=== PATIENT | female | born 1980 | race Caucasian/White ===

== ENCOUNTER 2016-08-14 21:34 | Outpatient (CLI) | payer MEDICAID ==
[~2016-08-14] VITALS: Ht 157.5 cm; Wt 65.6 kg
[~2016-08-14 21:34] MED LIST: ONDA-43 PO
[2016-08-14 21:53] VITALS: Ht 157.5 cm; Wt 65.6 kg
[2016-08-14 21:54] VITALS: BP 105/55; RESP 18
[2016-08-14] MEDS ORDERED: PREN1TAB62 PO (22:01)
[2016-08-14 23:00] LABS: ADD UMIC YES; URINE BILIRUBIN (Dip) NEGATIVE (NEGATIVE); URINE BLOOD (Dip) 2+ (NEGATIVE); URINE GLUCOSE (Dip) NEGATIVE (NEGATIVE); URINE KETONES (Dip) NEGATIVE (NEGATIVE); URINE LEUKOCYTE ESTERASE (Dip) NEGATIVE (NEGATIVE); URINE NITRITE (Dip) NEGATIVE (NEGATIVE); URINE TOTAL PROTEIN (Dip) NEGATIVE (NEGATIVE); URINE UROBILINOGEN (Dip) 0.2 E.U./dL (0.1-1.0)
[2016-08-14 23:07] LABS: BASOPHILS % 0.3 % (0.0-2.0); EOSINOPHILS # 0.2 10^3/ul (0.0-0.5); EOSINOPHILS % 1.5 % (0.0-7.0); HEMATOCRIT 30.1 % (37.0-47.0); LYMPHOCYTES % 13.1 % (15.0-51.0); MEAN CORPUSCULAR HGB CONC 33.3 g/dl (32.0-37.0); MEAN CORPUSCULAR VOLUME 90.2 fl (82.0-101.0); MEAN PLATELET VOLUME 7.8 fl (7.4-10.4); MONOCYTES % 6.8 % (0.0-11.0); NEUTROPHIL # 11.9 10^3/ul (1.6-7.5); NEUTROPHILS % 78.3 % (39.0-77.0); PLATELET COUNT 297 10^3/UL (140-440); RED BLOOD COUNT 3.34 10^6/ul (4.20-5.40); RED CELL DISTRIBUTION WIDTH 14.9 % (11.5-14.5); UNCORRECTED WBC 15.2 10^3/ul (4.8-10.8); WHITE BLOOD COUNT 15.2 10^3/ul (4.8-10.8)
[2016-08-14 23:10] LABS: CONDITION 1; LH ANALYZER COMMENTS 1
[2016-08-14 23:16] LABS: URINE COLOR YELLOW (YELLOW)
[2016-08-14 23:18] LABS: BACTERIA,URINE FEW; SQUAMOUS EPITHELIAL CELL,UR MODERATE; URINE RBCS 0-2 /HPF (0)
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
[2016-08-15] MEDS ORDERED: ACETAMINOPHEN 325 MG TAB PO ONE
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
== END 2016-08-15 01:00 | disposition home or self-care (01) ==
LOC: OBT 21:34 → L-D 21:35 → OBT 08-15 01:00
PROVIDERS: ATTEND Obstetrics & Gynecology
DX: O26.892 Other specified pregnancy related conditions, second trimester (principal); R10.9 Unspecified abdominal pain; M54.9 Dorsalgia, unspecified; O09.522 Supervision of elderly multigravida, second trimester; Z3A.22 22 weeks gestation of pregnancy; V49.40XA Driver injured in collision with unspecified motor vehicles in traffic accident, initial encounter; Y92.410 Unspecified street and highway as the place of occurrence of the external cause
CPT/HCPCS: 36415; 76815; 81001; 85025; 86850; 86900; 86901; 87086; Z7500; Z7610; 81003; G0463

== ENCOUNTER 2016-10-25 18:54 | Outpatient (CLI) | payer MEDICAID ==
[~2016-10-25] VITALS: Ht 162.6 cm; Wt 70.0 kg
[~2016-10-25 18:54] MED LIST changes: -ONDA-43 PO; +PREN1TAB62 PO
[2016-10-25 19:11] VITALS: BP 111/55; PULSE 80; RESP 18
[2016-10-25 20:24] LABS: ADD UMIC YES; URINE BILIRUBIN (Dip) NEGATIVE (NEGATIVE); URINE BLOOD (Dip) TRACE (NEGATIVE); URINE COLOR LT. YELLOW (YELLOW); URINE GLUCOSE (Dip) NEGATIVE (NEGATIVE); URINE KETONES (Dip) NEGATIVE (NEGATIVE); URINE LEUKOCYTE ESTERASE (Dip) TRACE (NEGATIVE); URINE NITRITE (Dip) NEGATIVE (NEGATIVE); URINE TOTAL PROTEIN (Dip) NEGATIVE (NEGATIVE); URINE UROBILINOGEN (Dip) 0.2 E.U./dL (0.1-1.0)
--- NOTE | 2016-10-25 20:36 | RADRPT ---
PROCEDURE: OB ultrasound for biophysical profile CLINICAL INDICATION: Biophysical profile. . leaking TECHNIQUE: Multiple sonographic images of the pelvis were obtained. Transabdominal view of the gr avid uterus are available for review. The images were reviewed on a PACS workstation. COMPARISON: 10/25/2016 FINDINGS: Single intrauterine gestation. Presentation: Cephalic. Partially visualized placenta: Posterior breathing movement = 2/2 tone = 2/2 motion = 2/2 HAILEY = 2/2 HAILEY = 9.7 cm heart rate: 133 beats per minute IMPRESSION: Single intrauterine gestation. Biophysical profile 02/20 HAILEY = 9.7 cm RPTAT: AADD .Tomi Hawley MD, MD Date Time Electronically viewed and signed by .Tomi Hawley MD, on 10/25/2016 20:36 .B/
[2016-10-25 21:00] LABS: SQUAMOUS EPITHELIAL CELL,UR FEW; URINE RBCS 0-2 /HPF (0)
--- NOTE | 2016-10-25 21:29 | RADRPT ---
PROCEDURE: Ultrasound CLINICAL INDICATION: Leaking amnionic fluid and uterine contractions. TECHNIQUE: Ultrasound examination of for evaluation of the cervix. Real time abrams scale images were obtained and M-mode technique was employed. COMPARISON: Ultrasound examination a dated 10/05/2016. FINDINGS: The cervix measures 3 cm. Single live in the uterine is identified with estimated gestational age of 32 weeks and 1 day by last menstrual period, with estimated date of delivery of 12/19/2016. Heart motion is detected at a rate of 134 beats per minute. The placenta is posterior grade 1 versu s grade 2. IMPRESSION: Cervix measures 3 cm. RPTAT: UU Physician Jose Date Time Electronically viewed and signed by Physician Jose on 10/25/2016 21:29 RS/
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
--- NOTE | 2016-10-25 23:43 | QN ---
Documentation Comment 36-year-old with IUP at 31 weeks and 6 days presented with complaint of leaking of brownish fluid for the last 3 days, as well as feeling some cramps. [facility]. She had not had any gynecology or OB evaluation for this. She denies any decreased movement. She denies any complications during this . She denies any dysuria. Physical examination: General appearance: Alert and oriented 4. Patient does not appear to be in any acute distress. Abdomen: Soft, gravid, nontender, fundal height consistent with gestational age NST: Occasional contractions 3-4 and 1 hour noted on the monitor. heart tracing: Category 1 Sterile speculum examination: Negative pooling, negative nitrazine, negative R OM Cervix appeared to be closed and long. No blood or brownish vaginal discharge in the vault. Transvaginal cervical length more than 3 cm PROCEDURE: Ultrasound CLINICAL INDICATION: Leaking amnionic fluid and uterine contractions. TECHNIQUE: Ultrasound examination of for evaluation of the cervix. Real time abrams scale images were obtained and M-mode technique was employed. COMPARISON: Ultrasound examination a dated 10/05/2016. FINDINGS: The cervix measures 3 cm. Single live in the uterine is identified with estimated gestational age of 32 weeks and 1 day by last menstrual period, with estimated date of delivery of 12/19/2016. Heart motion is detected at a rate of 134 beats per minute. The placenta is posterior grade 1 versus grade 2. IMPRESSION: Cervix measures 3 cm. RPTAT: UU PROCEDURE: OB ultrasound for biophysical profile CLINICAL INDICATION: Biophysical profile. . leaking TECHNIQUE: Multiple sonographic images of the pelvis were obtained. Transabdominal view of the gravid uterus are available for review. The images were reviewed on a PACS workstation. COMPARISON: 10/25/2016 FINDINGS: Single intrauterine gestation. Presentation: Cephalic. Partially visualized placenta: Posterior breathing movement = 2/2 tone = 2/2 motion = 2/2 HAILEY = 2/2 HAILEY = 9.7 cm heart rate: 133 beats per minute IMPRESSION: Single intrauterine gestation. Biophysical profile 8/8 HAILEY = 9.7 cm RPTAT: AADD Assessment: IUP at 31 weeks and 6 days No evidence of PPROM or labor, After p.o. hydration. Patient felt no cramps or any symptoms. Patient will be discharged home. Strict labor precaution and kick count discussed with the patient. Advised to have a follow-up with her OB clinic in a couple days after discharge from the triage and to return to triage if she has any other symptoms Patient verbalized understanding JUAN MANUEL GILLIAM MD Oct 25, 2016 23:43
== END 2016-10-25 22:50 | disposition home or self-care (01) ==
LOC: OBT 18:54 → L-D 18:55 → OBT 22:50
PROVIDERS: ATTEND Obstetrics & Gynecology
DX: O42.913 Preterm premature rupture of membranes, unspecified as to length of time between rupture and onset of labor, third trimester (principal); O09.523 Supervision of elderly multigravida, third trimester; O26.893 Other specified pregnancy related conditions, third trimester; R25.2 Cramp and spasm; Z3A.31 31 weeks gestation of pregnancy
CPT/HCPCS: 76817; 76818; 81001; 84112; Z7500; 81003; G0463

== ENCOUNTER 2016-11-19 04:55 | Outpatient (CLI) | payer MEDICAID ==
[~2016-11-19] VITALS: Ht 157.5 cm; Wt 71.3 kg
[2016-11-19 05:14] VITALS: Ht 157.5 cm; Wt 71.3 kg
[2016-11-19 05:15] VITALS: BP 107/54; PULSE 68; RESP 18
[2016-11-19] MEDS ORDERED: TERBUTALINE 1 MG/ML INJ SC ONE (06:30)
[2016-11-19 08:34] LABS: ADD UMIC NO; UR BILIRUBIN (Dip) NEGATIVE (NEGATIVE); UR BLOOD (Dip) NEGATIVE (NEGATIVE); UR CLARITY CLEAR (CLEAR); UR COLOR LT. YELLOW (YELLOW); UR GLUCOSE (Dip) NEGATIVE (NEGATIVE); UR KETONES (Dip) NEGATIVE (NEGATIVE); UR LEUKOCYTE ESTERASE (Dip) NEGATIVE (NEGATIVE); UR NITRITE (Dip) NEGATIVE (NEGATIVE); UR TOTAL PROTEIN (Dip) NEGATIVE (NEGATIVE); UR UROBILINOGEN (Dip) 0.2 E.U./dL (0.1-1.0)
--- NOTE | 2016-11-19 09:19 | RADRPT ---
PROCEDURE: US biophysical profile. CLINICAL INDICATION: labor TECHNIQUE: Multiple sonographic images of the uterus were obtained. The images were revi ewed on a PACS workstation. COMPARISON: No prior studies are available for comparison. FINDINGS: There is a single live intrauterine gestation. heart rate is 150 beats per minute. The position is cephalic. The placenta is posterior grade II. The HAILEY is 11.2 cm. (Normal = 5-20 cm.) Breathing Movement: 2 Gross Body Movement: 2 Tone: 2 Qualitative Amniotic Fluid Volume: 2 TOTAL: 8 IMPRESSION: 1. The biophysical score is 8/8. 2. The HAILEY = 11.2 cm RPTAT: UU .Zeb Valentino MD, MD Date Time Electronically viewed and signed by .Zeb Valentino MD, on 11/19/2016 09:19 .K/
--- NOTE | 2016-11-19 11:10 | TRIAGE ---
OB Triage Datetime Report Generated by CPN: 11/19/2016 11:09 Datetime: 11/19/2016 10:38 Labor Evaluation Frequency: 0 Monitor Mode: External Pattern: Normal: <= 5 Contractions in 10 Minutes Resting Tone [place]: Relaxed Heart Rate FHR Baseline Rate: 130 Monitor Mode: External US FHR Baseline Changes: No Baseline Change Variability: Moderate 6-25 bpm Accelerations: 15X15 Decelerations: None Pain Assessment Pain Scale: 0 Pain Presence: None/Denies Pain Type: N/A Datetime: 11/19/2016 10:00 Labor Evaluation Frequency: x1 Monitor Mode: External Duration (sec)2399: 50 Pattern: Normal: <= 5 Contractions in 10 Minutes Resting Tone [place]: Relaxed Heart Rate FHR Baseline Rate: 130 FHR Baseline Changes: No Baseline Change Variability: Moderate 6-25 bpm Accelerations: 15X15 Decelerations: None Pain Assessment Pain Scale: 0 Pain Presence: None/Denies Pain Type: N/A Datetime: 11/19/2016 09:00 Labor Evaluation Frequency: x1 Monitor Mode: External Duration (sec)2399: 100 Pattern: Normal: <= 5 Contractions in 10 Minutes Resting Tone [place]: Relaxed Heart Rate FHR Baseline Rate: 130 Monitor Mode: External US FHR Baseline Changes: No Baseline Change Variability: Moderate 6-25 bpm Accelerations: 15X15 Decelerations: None Category: Category I Datetime: 11/19/2016 08:01 Labor Evaluation Frequency: x1 Monitor Mode: External Duration (sec)2399: 120 Quality: Mild Pattern: Normal: <= 5 Contractions in 10 Minutes Resting Tone [place]: Relaxed Heart Rate FHR Baseline Rate: 130 Monitor Mode: External US FHR Baseline Changes: No Baseline Change Variability: Moderate 6-25 bpm Accelerations: 15X15 Decelerations: None Category: Category I Datetime: 11/19/2016 07:32 Pain Assessment Pain Scale: 0 Pain Presence: None/Denies Pain Type: N/A Pain Assessment Comments: PT REPORTS THAT SHE NO LONGER FEELS PAIN OR CONTRACTIONS Datetime: 11/19/2016 06:46 Stage of : OB Triage Maternal Assessment Level of Consciousness: Fully Conscious DTR's/Clonus: DTRs 2+; No Clonus Headache: Denies Breath Sounds, Left: Clear and Equal Breath Sounds, Right: Clear and Equal Nausea/Vomiting: Denies RUQ Epigastric Pain: Denies Labor Evaluation Frequency: X1 Monitor Mode: External Duration (sec)2399: 60-110 Quality: Moderate Pattern: Normal: <= 5 Contractions in 10 Minutes Resting Tone [place]: Relaxed Heart Rate FHR Baseline Rate: 135 Monitor Mode: External US Variability: Moderate 6-25 bpm Accelerations: 15X15 Decelerations: None Category: Category I Pain Assessment Pain Scale: 9 Pain Presence: Intermittent Pain Type: Contraction Pain Location: Abdomen Pain Goal: 3 Pain Relief Measures: Comfort Measures Datetime: 11/19/2016 06:16 Stage of : OB Triage Datetime: 11/19/2016 06:15 Stage of : OB Triage Maternal Assessment Level of Consciousness: Fully Conscious DTR's/Clonus: DTRs 2+; No Clonus Headache: Denies Breath Sounds, Left: Clear and Equal Breath Sounds, Right: Clear and Equal Nausea/Vomiting: Denies RUQ Epigastric Pain: Denies Labor Evaluation Frequency: X4 Monitor Mode: External Duration (sec)2399: 60-110 Quality: Moderate Pattern: Normal: <= 5 Contractions in 10 Minutes Resting Tone [place]: Relaxed Heart Rate FHR Baseline Rate: 130 Monitor Mode: External US Variability: Moderate 6-25 bpm Accelerations: 15X15 Decelerations: None Category: Category I Pain Assessment Pain Scale: 9 Pain Presence: Intermittent Pain Type: Contraction Pain Location: Abdomen Pain Goal: 3 Pain Relief Measures: Comfort Measures Vaginal Exam Dilatation (cms): 1.0 Effacement (%): 50 Station: -3 Exam By: SHIV COOLEY Datetime: 11/19/2016 05:55 Stage of : OB Triage Datetime: 11/19/2016 05:25 Time of Arrival: 11/19/2016 04:50 EGA: 35.3 Arrived By: Wheelchair Arrived From: Home Chief Complaint: PT C/O ABDOMEN PAIN Movement: Present Contractions: Irregular Rupture of Membranes: Denies Vaginal Bleeding: None Vaginal Discharge: Denies Recent Sexual Intercouse: Denies Abdominal Trauma: Not Applicable Patient Complaints: Contractions Additional Patient Complaints: INITIAL ASSESSMENT, SVE, TOCO AND EFM APPLIED Time Provider Notified: 11/19/2016 05:55 Provider Notified: DR. CARROLL Initial Plan: ORAL HYDRATION, UA Datetime: 11/19/2016 05:20 Stage of : OB Triage Maternal Assessment Level of Consciousness: Fully Conscious DTR's/Clonus: DTRs 2+; No Clonus Headache: Denies Blurred Vision: No Respiratory Effort: Unlabored; Regular Rhythm; Equal Expansion Breath Sounds, Left: Clear and Equal Breath Sounds, Right: Clear and Equal Nausea/Vomiting: Denies RUQ Epigastric Pain: Denies Lower Extremities Edema: None Upper Extremities Edema: None Facial Edema: None Temperature Route: Oral Fall Risk Assessment History of Falling: (0) No Secondary Diagnosis: (0) No Ambulatory Aid: (0) Bedrest/Nurse Assist IV Therapy: (0) No Gait: (0) Normal/Bedrest/Immobile Mental Status: (0) Oriented to Own Ability Fall Score: 0 Fall Risk Score Definition: No Risk: No action required Labor Evaluation Frequency: IRREGULAR Monitor Mode: External Duration (sec)2399: 80 Quality: Moderate Pattern: Normal: <= 5 Contractions in 10 Minutes Resting Tone [place]: Relaxed Heart Rate FHR Baseline Rate: 130 Monitor Mode: External US Variability: Moderate 6-25 bpm Accelerations: 15X15 Decelerations: None Category: Category I Pain Assessment Pain Scale: 9 Pain Presence: Intermittent Pain Type: Contraction Pain Location: Abdomen Pain Goal: 3 Pain Relief Measures: Comfort Measures Vaginal Exam Dilatation (cms): 1.0 Effacement (%): 50 Station: -3 Exam By: SHIV COOLEY Datetime: 11/19/2016 05:16 Stage of : OB Triage Datetime: 10/25/2016 19:09 Fall Score: 0 Fall Risk Score Definition: No Risk: No action required Datetime: 10/25/2016 19:06 EGA: 31.6 Time Provider Notified: 10/25/2016 19:30 Provider Notified: ARDALAN Datetime: 08/14/2016 21:39 EGA: 21.4 Datetime: 08/14/2016 21:20 Fall Score: 0 Fall Risk Score Definition: No Risk: No action required
--- NOTE | 2017-02-05 10:40 | QN ---
Documentation Comment iup 35weeks g2-1 c/o of ucx vss exam wnl os closed a/p iup 35 weeks false labor dc home JOSE D SAUCEDA MD Feb 05, 2017 10:40
== END 2016-11-19 11:10 | disposition home or self-care (01) ==
LOC: OBT 04:55 → L-D 04:56 → OBT 11:10
PROVIDERS: ATTEND Obstetrics & Gynecology
DX: O26.893 Other specified pregnancy related conditions, third trimester (principal); R10.9 Unspecified abdominal pain; O09.523 Supervision of elderly multigravida, third trimester; Z3A.35 35 weeks gestation of pregnancy
CPT/HCPCS: 76818; 81003; 87086; 96372; J3105; Z7500; G0463

== ENCOUNTER 2016-12-13 19:05 | Inpatient (IN) | payer MEDICAID ==
--- NOTE | 2016-11-21 21:51 | NSTRPT ---
NST Information Datetime Report Generated by CPN: 11/21/2016 21:51 Datetime: 11/21/2016 09:05 NST Information EGA: 35.5 Test Number: 1 Time on Monitor: 11/21/2016 09:33 Time off Monitor: 11/21/2016 10:01 NST Duration (Min): 28 Reason for NST: Other Reason for NST Other: Marginal Cord Insertion Test and Monitor Explained: Monitor Explained; Test Explained; Verbalized Understanding Pulse: 82 Resp: 17 SBP: 101 DBP: 52 Test Evaluation NST Interventions: Reposition Patient Patient States Movement: Present Contraction Frequency: none FHR Baseline : 120 Variability: Moderate 6-25bpm Accelerations: 15X15 Decelerations: None FHR Category: Category I NST Results: Reactive Comments: To u/s, HAILEY 10.3cm, cephalic 1002-Pt home undelivered with PTL precautions, kick count instructions reviewed and follow up NST appt given. States understanding and denies further questions at this time. Electronically Signed By E-Signature: with User ID: [id number]
[~2016-12-13] VITALS: Ht 157.5 cm; Wt 61.3 kg
[2016-12-13 19:28] VITALS: Ht 157.5 cm; Wt 61.3 kg
[2016-12-13 19:29] VITALS: BP 114/69; PULSE 86; RESP 18
[2016-12-13] MEDS ORDERED: LACTATED RINGER'S 1,000 ML IV SCH (21:08)
--- NOTE | 2016-12-13 21:25 | TRIAGE ---
OB Triage Datetime Report Generated by CPN: 12/13/2016 21:25 Datetime: 12/13/2016 20:58 Vaginal Exam Dilatation (cms): 7.0 Effacement (%): 90 Station: -1 Exam By: Judy Gomes RN Datetime: 12/13/2016 20:54 ROM Test Kit: Positive Datetime: 12/13/2016 20:13 Vaginal Exam Dilatation (cms): 4.0 Effacement (%): 80 Station: -2 Exam By: Judy Gomes RN Membrane Status: Ruptured Membranes Ruptured Date/Time: 12/13/2016 15:00 Membranes Rupture Method: Spontaneous Amniotic Fluid Color: Clear Amniotic Fluid Amount: Small Vaginal Bleeding: None Pool: Positive Cervix, Consistency: Soft Cervix, Position: Midposition Presentation 'A': Cephalic Datetime: 12/13/2016 19:22 Time of Arrival: 12/13/2016 18:55 EGA: 38.6 Arrived By: Ambulatory Arrived From: Home Chief Complaint: UC's Movement: Decreased Contractions: Regular Time Contractions Began: 12/13/2016 16:00 Contractions: Every 5 min Rupture of Membranes: Unsure Vaginal Bleeding: None Vaginal Discharge: Denies Recent Sexual Intercouse: Denies Abdominal Trauma: Not Applicable Patient Complaints: Contractions; Other Additional Patient Complaints: Leaking Time Provider Notified: 12/13/2016 19:35 Provider Notified: Dr. Arrieta Initial Plan: CEFM Datetime: 12/13/2016 19:15 Stage of : OB Triage Assessment Type: Triage Maternal Assessment Level of Consciousness: Fully Conscious DTR's/Clonus: DTRs 2+; No Clonus Headache: Denies Blurred Vision: No Respiratory Effort: Unlabored; Regular Rhythm; Equal Expansion Breath Sounds, Left: Clear and Equal Breath Sounds, Right: Clear and Equal Nausea/Vomiting: Denies RUQ Epigastric Pain: Denies Facial Edema: None Temperature Route: Oral Fall Risk Assessment History of Falling: (0) No Secondary Diagnosis: (0) No Ambulatory Aid: (0) Bedrest/Nurse Assist IV Therapy: (0) No Gait: (0) Normal/Bedrest/Immobile Mental Status: (0) Oriented to Own Ability Fall Score: 0 Fall Risk Score Definition: No Risk: No action required Pain Assessment Pain Scale: 8 Pain Presence: Intermittent Pain Type: Cramping Pain Location: Abdomen Datetime: 11/19/2016 05:25 EGA: 35.3 Datetime: 11/19/2016 05:20 Fall Score: 0 Fall Risk Score Definition: No Risk: No action required Datetime: 10/25/2016 19:09 Fall Score: 0 Fall Risk Score Definition: No Risk: No action required Datetime: 10/25/2016 19:06 EGA: 31.6 Datetime: 08/14/2016 21:39 EGA: 21.4 Datetime: 08/14/2016 21:20 Fall Score: 0 Fall Risk Score Definition: No Risk: No action required
[2016-12-13] MEDS ORDERED: LIDOCAINE 1% (MPF) 30 ML INJ INJ PRN (21:30)
[2016-12-13] MEDS ORDERED: BUTORPHANOL 2 MG INJ IV PRN (21:30)
[2016-12-13] MEDS ORDERED: CARBOPROST 250 MCG INJ IM PRN ×2 (21:30→23:00)
[2016-12-13] MEDS ORDERED: IBUPROFEN 600 MG TAB PO PRN (21:30)
[2016-12-13] MEDS ORDERED: MISOPROSTOL 200 MCG TAB PR PRN ×2 (21:30→23:00)
[2016-12-13] MEDS ORDERED: AMPICILLIN 2 GM/NS (PMX) 100 ML IV ONE (21:30)
[2016-12-13] MEDS ORDERED: LACTATED RINGER'S 1,000 ML IV PRN (21:30)
[2016-12-13] MEDS ORDERED: METHYLERGONOVINE 0.2 MG INJ IM PRN ×2 (21:30→23:00)
[2016-12-13] MEDS ORDERED: OXYTOCIN 30 UNITS/LR 500 ML IV PRN ×2 (21:30→23:00)
--- NOTE | 2016-12-13 22:46 | HP ---
Date/Time of Note Date/Time of Note DATE: 12/13/16 TIME: 22:38 OB - History Hx of Present Free Text/Dictation 36 years old with IUP at 38 weeks and 6/7 days presented with complaint of SROM. She also had some cramps. She was noted to be in labor. Patient's past Ob history was significant for history of IUFD at 6 mo. she was noted to be 4 cm dilated, how ever rapidly progressed to complete and had precipitous labor.Her GBS was positive. how ever due to precipitous labor there was no chance to receive IV antibiotics. Patient had marginal cord insertion in current and had been following up with testing. she was immediately to L&D room Estimated Due Date: Dec 21, 2016 Obstetrical Complications: Other (History of IUFD at 6 mo. Has marginal placental insertion cord in current ) Medical Complications: None Past Family/Social History * Past Medical, Surgical, Family and Obstetric Histories reviewed from chart. OB Admission Exam Vital Signs Vital Signs Vital Signs Date Time Temp Pulse Resp B/P Pulse Ox O2 Delivery O2 Flow Rate FiO2 12/13/16 19:29 98.0 86 18 114/69 Room Air Physical Exam HEENT: WNL Abdomen: WNL Cervical Dilatation: 10cm Effacement: 100% Station: +3 Membranes: Ruptured Amniotic Fluid: Clear Heart Rate: 120's Accelerations: Accelerations Present Decelerations: No Decelerations Varibility: Moderate Contractions on Admission: < 5 Minutes Apart Intensity: Firm OB Assessment/Plan Reason for admission: active labor Other Assessment: IUP at 38 weeks and 6 days History of IUFD at 6 mo Marginal insertion of the cord. Precipitous labor GBS positive, no time for prophylaxis. Nursery informed Patient delivered shortly after arrival; See the delivery note JUAN MANUEL GILLIAM MD December 13, 2016 22:46
[2016-12-13] MEDS: LACTATED RINGER'S 1,000 ML IV* SCH (22:48)
--- NOTE | 2016-12-13 22:48 | LDN ---
Date/Time of Note Date/Time of Note DATE: 12/13/16 TIME: 22:46 Delivery Summary Placenta Delivered: Spontaneously Meconium: none Episiotomy: No Perineal laceration: 1 Laceration repair: first degree superical abrasion of the left labia minora noted. no requirement for repair, not bleeding Anesthesia type: None Sponge & Needle done & correct: Yes All needle counts correct: Yes Any foreign bodies felt in the: No Problems: Infant Delivery Information Sex Infant Sex: male Apgars 1 Minute: 9 5 Minute: 9 Suctioning Nose & mouth suctioned at don: Yes Umbilical Cord Cord presentations: no nuchal cord Cord Blood was obtained: Yes JUAN MANUEL GILLIAM MD December 13, 2016 22:48
[2016-12-13] MEDS ORDERED: ZOLPIDEM 5 MG TAB PO PRN (23:00)
[2016-12-13] MEDS ORDERED: ONDANSETRON 4 MG INJ IV PRN (23:00)
[2016-12-13] MEDS ORDERED: ACETAMINOPHEN 325 MG TAB PO PRN (23:00)
[2016-12-13] MEDS ORDERED: METHYLERGONOVINE 0.2 MG TAB PO PRN (23:00)
[2016-12-13] MEDS ORDERED: ACETAMINOPHEN/CODEINE #3 TAB PO PRN (23:00)
[2016-12-13] MEDS ORDERED: LANOLIN 7 GM TUBE TOP PRN (23:00)
[2016-12-13] MEDS ORDERED: WITCH HAZEL/GLYCERIN PAD PR PRN (23:00)
[2016-12-13] MEDS ORDERED: DIPHENHYDRAMINE 25 MG CAP PO PRN (23:00)
--- NOTE | 2016-12-13 23:03 | DELSUM ---
Delivery Summary A-C Datetime Report Generated by CPN: 12/13/2016 23:03 DELIVERY PERSONNEL [employer] Sourcing Specialist: Long, Alexsandra MATERNAL INFORMATION Delivery Anesthesia: None Medications in Delivery: OXYTOCIN 30 UNITS IN 500ML LR Estimated Blood Loss (ml): 220 Placenta Cultured: Yes Maternal Complications: Precip Labor <3hrs RN Comments: ADMITTED FROM TRIAGE TO LD AT 2120 AT 7CM; CHECKED AGAIN AT 2120 SVE 10/100/+2; DELIVE RY AT 2121 LABOR SUMMARY EDC: 12/21/2016 00:00 No. Babies in Womb: 1 Attempted: No Labor Anesthesia: None LABOR INFORMATION Reason for Induction: Not Applicable Oxytocin: N/A Group B Beta Strep: Positive Antibiotics # of Doses: 1 Antibiotics Time of Last Dose: 12/13/2016 21:20 Steroids Given: None Reason Steroids Not Administered: Not Applicable MEMBRANES Membranes Rupture Method: Spontaneous Rupture of Membranes: 12/13/2016 15:00 Length of Rupture (hr): 6.35 Amniotic Fluid Color: Clear Amniotic Fluid Amount: Small Amniotic Fluid Odor: None STAGES OF LABOR Stage 3 hr: 0 Stage 3 min: 4 VAGINAL DELIVERY Episiotomy: None Laceration Extension: N/A Laceration Type: None Laceration Repair: Not Applicable Initial Vag Sponge Count: 10 Final Vag Sponge Count: 10 Initial Vag Sharps Count: 1 Final Vag Sharps Count: 1 Sponge Count Correct: Yes Sharps Count Correct: Yes BABY A INFORMATION Delivery Date/Time: 12/13/2016 21:21 Method of Delivery: Vaginal Born in Route : No : N/A Forceps: N/A Vacuum Extraction: N/A Shoulder Dystocia : N/A SHOULDER DYSTOCIA BABY A Infant Delivery Date/Time: 12/13/2016 21:21 PRESENTATION/POSITION BABY A Presentation: Cephalic Cephalic Presentation: Vertex Vertex Position: Left Occipital Anterior Breech Presentation: N/A PLACENTA INFORMATION BABY A Placenta Delivery Time : 12/13/2016 21:25 Placenta Method of Delivery: Spontaneous Placenta Status: Delivered SCORES BABY A Heart Rate 1 min: >100 bpm Resp Effort 1 min: Good Cry Reflex Irritability 1 min: Cough/Sneeze/Pulls Away Muscle Tone 1 min: Active Motion Color 1 min: Body [place], Extremit Blue Resuscitation Effort 1 min: Tactile Stimulation SCORE 1 MIN: 9 Heart Rate 5 min: >100 bpm Resp Effort 5 min: Good Cry Reflex Irritability 5 min: Cough/Sneeze/Pulls Away Muscle Tone 5 min: Active Motion Color 5 min: Body [place], Extremit Blue Resuscitation Effort 5 min: Tactile Stimulation SCORE 5 MIN: 9 INFORMATION BABY A Gestational Age at Delivery: 38.6 Gestational Status: Early Term- 37- 38.6 Weeks Infant Outcome : Liveborn Infant Condition : Stable Infant Sex: Male IDENTIFICATION/MEDS BABY A ID Band Number: [id number] ID Band Location: Right Leg; Left Arm Sensor Applied: Yes Sensor Number: [id number] Sensor Location : Cord Clamp Vitamin K Given : Not Given Erythromycin Given: Not Given WEIGHT/LENGTH BABY A Infant Birthweight (gm): 3220 Infant Weight (lb): 7 Infant Weight (oz): 2 Infant Length (in): 19.00 Length (cm): 48.26 CORD INFORMATION BABY A No. Cord Vessels: 3 Nuchal Cord : N/A Cord Blood Taken: Yes Suction: Mouth; Nose ASSESSMENT BABY A Infant Complications: None Physical Findings at Delivery: Within Normal Limits Respirations: Appears Normal Financial Aid Manager/ALS Called : No Care By: CODEY SIGALA RN Transferred To: Remains with Mother
[2016-12-14] VITALS: BP 129/65; PULSE 73; RESP 19
[2016-12-14 01:39] LABS: ADD SCAN DIFF NO
[2016-12-14 01:46] LABS: ABNORMAL IP MESSAGE 1; HEMATOCRIT 27.4 % (37.0-47.0); HEMOGLOBIN 8.4 g/dl (12.0-16.0); MEAN CORPUSCULAR HEMOGLOBIN 25.5 pg (29.0-33.0); MEAN CORPUSCULAR HGB CONC 30.7 g/dl (32.0-37.0); MEAN CORPUSCULAR VOLUME 83.3 fl (82.0-101.0); MEAN PLATELET VOLUME 9.8 fl (7.4-10.4); PLATELET COUNT 334 10^3/UL (140-415); RED BLOOD COUNT 3.29 10^6/ul (4.20-5.40); RED CELL DISTRIBUTION WIDTH 15.3 % (11.5-14.5)
[2016-12-14] MEDS: LACTATED RINGER'S 1,000 ML IV* SCH ×2 (01:51→22:48)
[2016-12-14 02:10] LABS: INR 0.96; PARTIAL THROMBOPLASTIN TIME 24.5 Sec (25.0-35.0); PROTIME 12.8 Sec (12.2-14.2)
[2016-12-14 03:15] VITALS: BP 120/68; PULSE 86; RESP 18
[2016-12-14 03:59] LABS: LYMPHOCYTES # 0.7 10^3/ul (0.8-2.9); MONOCYTE # 0.7 10^3/ul (0.3-0.9); NEUTROPHIL # 21.9 10^3/ul (1.6-7.5)
[2016-12-14] MEDS: IBUPROFEN 600 MG TAB PO SCH ×5 (05:55→23:59)
[2016-12-14 06:54] LABS: ADD SCAN DIFF NO
[2016-12-14 07:00] LABS: ABNORMAL IP MESSAGE 1; BASOPHILS % 0.1 % (0.0-2.0); EOSINOPHILS # 0.1 10^3/ul (0.0-0.5); EOSINOPHILS % 0.6 % (0.0-7.0); HEMOGLOBIN 8.7 g/dl (12.0-16.0); LYMPHOCYTES # 2.2 10^3/ul (0.8-2.9); LYMPHOCYTES % 10.1 % (15.0-51.0); MEAN CORPUSCULAR HEMOGLOBIN 25.8 pg (29.0-33.0); MEAN CORPUSCULAR HGB CONC 31.1 g/dl (32.0-37.0); MEAN CORPUSCULAR VOLUME 83.1 fl (82.0-101.0); MEAN PLATELET VOLUME 9.5 fl (7.4-10.4); MONOCYTE # 1.9 10^3/ul (0.3-0.9); MONOCYTES % 8.7 % (0.0-11.0); NEUTROPHIL # 17.2 10^3/ul (1.6-7.5); NEUTROPHILS % 79.4 % (39.0-77.0); PLATELET COUNT 310 10^3/UL (140-415); RED BLOOD COUNT 3.37 10^6/ul (4.20-5.40); RED CELL DISTRIBUTION WIDTH 15.4 % (11.5-14.5); WHITE BLOOD COUNT 21.7 10^3/ul (4.8-10.8)
[2016-12-14 07:30] VITALS: BP 101/57; PULSE 72; RESP 18
[2016-12-14 07:50] LABS: BARBITURATES Negative (NEGATIVE); BENZODIAZEPINES Negative (NEGATIVE); CANNABINOIDS Negative (NEGATIVE); COCAINE Negative (NEGATIVE); OPIATES Negative (NEGATIVE)
[2016-12-14] MEDS: SENNA/DOCUSATE NA (8.6MG/50MG) TAB PO SCH ×2 (08:29→20:54)
[2016-12-14 15:35] VITALS: BP 113/56; PULSE 78; RESP 18
--- NOTE | 2016-12-14 17:09 | PN ---
Date/Time of Note Date/Time of Note DATE: 12/14/16 TIME: 17:07 OB Subjective Subjective Subjective Post normal vaginal delivery day 1 Afebrile VSs abdomen soft uterus firm lochia normal extremity normal ambulation encouraged, plan of possible a.m. discharge discussed with the patient. Laboratory Tests Test 12/13/16 20:05 12/14/16 00:50 12/14/16 06:30 12/14/16 06:33 Membranes Rupture POSITIVE White Blood Count 24.110^3/ul 21.710^3/ul Red Blood Count 3.2910^6/ul 3.3710^6/ul Hemoglobin 8.4g/dl 8.7g/dl Hematocrit 27.4% 28.0% Mean Corpuscular Volume 83.3fl 83.1fl Mean Corpuscular Hemoglobin 25.5pg 25.8pg Mean Corpuscular Hemoglobin Concent 30.7g/dl 31.1g/dl Red Cell Distribution Width 15.3% 15.4% Platelet Count 08817^3/UL 95801^3/UL Mean Platelet Volume 9.8fl 9.5fl Neutrophils % 91.0% 79.4% Band Neutrophils % 3.0% Lymphocytes % 3.0% 10.1% Monocytes % 3.0% 8.7% Neutrophils # 21.910^3/ul 17.210^3/ul Lymphocytes # 0.710^3/ul 2.210^3/ul Monocytes # 0.710^3/ul 1.910^3/ul Prothrombin Time 12.8Sec Prothrombin Time Ratio 1.0 INR International Normalized Ratio 0.96 Activated Partial Thromboplast Time 24.5Sec Hepatitis B Surface Antigen NEGATIVE Urine Opiates Screen Negative Urine Barbiturates Negative Urine Amphetamines Screen Negative Urine Benzodiazepines Screen Negative Urine Cocaine Screen Negative Urine Cannabinoids Negative Eosinophils % 0.6% Basophils % 0.1% Nucleated Red Blood Cells % 0.0/100WBC Eosinophils # 0.110^3/ul Basophils # 0.010^3/ul Nucleated Red Blood Cells # 0.010^3/ul Current Medications Medications (Trade) Dose Ordered Sig/Jitendra Route PRN Reason Start Time Stop Time Status Last Admin Dose Admin Lactated Ringer's 1,000 ml @ 125 mls/hr Q8H IV 12/13/16 21:08 12/13/16 22:50 DC Ampicillin (Ampicillin 2 Gm/ NS (Pmx)) 100 ml @ 100 mls/hr ONCE ONCE IV 12/13/16 21:30 12/13/16 22:29 DC Butorphanol Tartrate (Stadol) 2 mg Q2H PRN IV PAIN 12/13/16 21:30 12/13/16 22:50 DC Lidocaine (Xylocaine 1% (Mpf)) 30 ml ONCE PRN INJ EPISIOTOMY/TEARING 12/13/16 21:30 12/13/16 22:50 DC Ibuprofen 600 mg 600 mg ONCE PRN PO Mild Pain (Pain Score 1-3) 12/13/16 21:30 12/13/16 22:50 DC 12/13/16 21:51 Lactated Ringer's 1,000 ml @ 2,000 mls/hr Q30M PRN IV PRE-EPIDURAL BOLUS 12/13/16 21:30 12/13/16 22:50 DC Oxytocin/Lactated Ringer's 500 ml @ 0 mls/hr ONCE PRN IV For Hemorrhage Management 12/13/16 21:30 12/13/16 22:50 DC 12/13/16 21:53 Methylergonovine Maleate (Methergine) 0.2 mg ONCE PRN IM VAGINAL BLEEDING 12/13/16 21:30 12/13/16 22:50 DC Carboprost Tromethamine (Hemabate) 250 mcg ONCE PRN IM VAGINAL BLEEDING 12/13/16 21:30 12/13/16 22:50 DC Misoprostol 1000 mcg 1,000 mcg ONCE PRN MS VAGINAL BLEEDING 12/13/16 21:30 12/13/16 22:50 DC Lactated Ringer's (Lr) 1,000 ml @ 125 mls/hr Q8H IV* 12/13/16 22:48 12/14/16 01:51 Methylergonovine Maleate (Methergine) 0.2 mg Q6H PRN PO VAGINAL BLEEDING 12/13/16 23:00 Ibuprofen (Motrin) 600 mg Q6 PO 12/14/16 00:00 12/14/16 11:29 Acetaminophen/ Codeine Phosphate (Tylenol No.3) 1 tab Q4H PRN PO PAIN LEVEL 1-5 12/13/16 23:00 Ondansetron HCl (Zofran Inj) 4 mg Q6H PRN IV NAUSEA AND/OR VOMITING 12/13/16 23:00 Diphenhydramine HCl (Benadryl) 25 mg Q6H PRN PO PRURITUS 12/13/16 23:00 Zolpidem Tartrate (Ambien) 5 mg QHS PRN PO INSOMNIA 12/13/16 23:00 Senna/Docusate Sodium (Senokot-S) 1 tab BID PO 12/14/16 09:00 12/14/16 08:29 Witch Qi/ Glycerin (Tucks Pads) 1 pad BEDSIDE MEDICATION PRN MS HEMORRHOID/EPISIOTMY PAIN 12/13/16 23:00 Lanolin (Ftq-B-Iloibr) 1 applic BEDSIDE MEDICATION PRN TOP BEDSIDE FOR JUAREZ TO NIPPLES 12/13/16 23:00 Measles/Mumps/ Rubella Vaccine Live (Mmr Ii Vaccine) 0.5 ml ONCE ONCE SC* 12/15/16 09:00 12/15/16 09:01 Diphtheria/ Tetanus/Acell Pertussis (Adacel) 0.5 ml ONCE ONCE IM* 12/15/16 09:00 12/15/16 09:01 Varicella Virus Vaccine Live (Varivax Vaccine With Diluent) 1,350 unit ONCE ONCE SC* 12/15/16 09:00 12/15/16 09:01 Acetaminophen 650 mg 650 mg Q4H PRN PO ELEVATED TEMPERATURE 12/13/16 23:00 Oxytocin/Lactated Ringer's 500 ml @ 0 mls/hr ONCE PRN IV For Hemorrhage Management 12/13/16 23:00 Methylergonovine Maleate (Methergine) 0.2 mg ONCE PRN IM VAGINAL BLEEDING 12/13/16 23:00 Carboprost Tromethamine (Hemabate) 250 mcg ONCE PRN IM VAGINAL BLEEDING 12/13/16 23:00 Misoprostol (Cytotec) 1,000 mcg ONCE PRN MS VAGINAL BLEEDING 12/13/16 23:00 ERROL SIMS MD Dec 14, 2016 17:09
[2016-12-14 19:50] VITALS: BP 114/65; PULSE 74; RESP 18
[2016-12-15 04:10] VITALS: BP 107/61; PULSE 67; RESP 18
[2016-12-15] MEDS: IBUPROFEN 600 MG TAB PO SCH ×2 (05:50→12:00)
[2016-12-15] MEDS: LACTATED RINGER'S 1,000 ML IV* SCH (06:48)
[2016-12-15 08:00] VITALS: BP 96/53; PULSE 71; RESP 18
[2016-12-15] MEDS ORDERED: VARICELLA VACCINE LIVE/PF 1,350 UNIT/0.5 ML ML SC* ONE (09:00)
[2016-12-15] MEDS ORDERED: MEASLES,MUMPS,RUBELLA VACCINE INJ SC* ONE (09:00)
[2016-12-15] MEDS ORDERED: DIPHTH/TET/ACEL PERTUSS (ADULT) 0.5 ML VIAL IM* ONE (09:00)
--- NOTE | 2016-12-15 09:19 | PD.PPDC ---
LOG ROLLER Discharge Instruction Condition Patient Condition: Good Diet Diet: Resume Regular Diet Activity/Restrictions Activity: Normal Activity May Shower Restrictions: No Exercising No Lifting No Driving No Sexual Activity Nothing in the Vagina No [place] No Tampons, douche Follow-up Follow-up with Physician: 2, Week/Weeks Provider Information: instructions given recommended to make appointment to be seen at the clinic in 2 weeks Return to clinic for [employer] [employer] Instructions: Fever greater than 101 Chills Worsening abdominal pain Excessive Vaginal Bleeding More than 2 pads per hour Unable to tolerate diet OB Instructions: Breast Tenderness Depression Blurried Vision Headache ERROL SIMS MD Dec 15, 2016 09:19
--- NOTE | 2016-12-15 09:23 | DS ---
Date/Time of Note Date/Time of Note DATE: 12/15/16 TIME: 09:20 Discharge Summary Admission/Discharge Info Admit Date/Time December 13, 2016 at 19:18 Discharge Date/Time December 15, 2016 at 0 913 Final Diagnosis Post normal vaginal delivery Patient Condition: Good Procedures Normal spontaneous vaginal delivery Hx of Present Illness Term normal spontaneous vaginal delivery Hospital Course Satisfactory uneventful Home Meds Reported Medications Vit-Iron Fumarate-FA ( Vitamin Tablet) 1 Each Tablet, 1 TAB PO DAILY, TAB 08/14/16 Follow-up Plan instructions given recommended to make appointment to be seen at the clinic in 2 weeks Primary Care Provider Care Physician No Primary Time spent on discharge: < 30 minutes ERROL SIMS MD Dec 15, 2016 09:23
[2016-12-15] MEDS: SENNA/DOCUSATE NA (8.6MG/50MG) TAB PO SCH (09:31)
--- NOTE | 2016-12-15 14:19 | NSTRPT ---
NST Information Datetime Report Generated by CPN: 12/15/2016 14:19 Datetime: 12/13/2016 09:21 NST Information EGA: 38.6 Test Number: 4 Time on Monitor: 12/13/2016 09:51 Time off Monitor: 12/13/2016 10:20 NST Duration (Min): 29 Reason for NST: Other Reason for NST Other: Marginal Cord Insertion Test and Monitor Explained: Monitor Explained; Test Explained; Verbalized Understanding; Breastfee ding Info Given Pulse: 78 Resp: 18 SBP: 102 DBP: 50 Test Evaluation NST Interventions: Reposition Patient Patient States Movement: Present Contraction Frequency: NONE FHR Baseline : 120 Variability: Moderate 6-25bpm Decelerations: None FHR Category: Category I NST Results: Reactive Provider Notified: Dr [id number] Comments: To u/s. HAILEY 7.3cm. CEPHALIC. 1038-Report to Dr Arrieta, order received to admit pt to L_D, Report called to L_D. POC explained to pt, inc pt to go directly to L_D for admission, explained pt not to go home or anywhere else prio r to admission. States understanding. 1042-Pt to L_D at this time. 1330-Pt has not arrived, Call pl aced to pt phone number, message left to go to hospital. Electronically Signed By E-Signature: with User ID: [id number] Datetime: 12/08/2016 09:27 NST Information EGA: 38.1 NST Duration (Min): 43 Datetime: 11/24/2016 09:08 NST Information EGA: 36.1 NST Duration (Min): 25 Datetime: 11/21/2016 09:05 NST Information EGA: 35.5 NST Duration (Min): 28
[2016-12-19 06:49] LABS: WHITE BLOOD COUNT 24.1 10^3/ul (4.8-10.8)
== END 2016-12-15 13:45 | disposition home or self-care (01) | DRG 775 ==
LOC: OBT 19:05 → L-D 19:05 → OBT 19:17 → L-D 19:18 → PP1 23:38 → EDSTATUS 12-21 10:59
PROVIDERS: ADMIT Obstetrics & Gynecology; ATTEND Obstetrics & Gynecology
PROC: 10E0XZZ Delivery of Products of Conception, External Approach (ICD-10-PCS; principal; 2016-12-13)
DX: O62.3 Precipitate labor (principal); O99.824 Streptococcus B carrier state complicating childbirth; Z3A.38 38 weeks gestation of pregnancy; Z37.0 Single live birth; O43.123 Velamentous insertion of umbilical cord, third trimester
CPT/HCPCS: 80307; 84112; 85025; 85610; 85730; 86592; 86900; 86901; 87340; 88307; 90715; 90716; J0290; J2590; J7120

== ENCOUNTER 2017-01-16 17:56 | Emergency (ER) | payer MEDICAID ==
[~2017-01-16] VITALS: Ht 167.6 cm; Wt 63.5 kg
[2017-01-16 17:59] VITALS: Ht 167.6 cm; Wt 63.5 kg
[2017-01-16 18:40] LABS: URINE BLOOD (Dip) POC 2+ (NEGATIVE)
[2017-01-16] MEDS ORDERED: CEPH-443 PO (19:35)
--- NOTE | 2017-01-16 20:42 | ERD ---
ER Documentation Chief Complaint Date/Time DATE: 01/16/17 TIME: 20:41 Chief Complaint BURNING & PELVIC PAIN W/URINATION X1MTH, HAD VAGINAL DELIVERY 12/13/16 HPI This patient is a 36-year-old female presenting to the emergency department with complaints of burning on urination which began 1 week ago. She denies any improvement in symptoms. Symptoms are currently mild in severity. She denies fevers, hematuria, chills, nausea, vomiting, diarrhea, abdominal pain, chest pain, or other symptoms currently. ROS All systems reviewed and are negative except as per history of present illness. Medications Home Meds Active Scripts Cephalexin* (Keflex*) 500 Mg Capsule, 500 MG PO TID for 7 Days, #21 CAP Prov:JESSIKA LAINEZ PA-C 01/16/17 Reported Medications Vit-Iron Fumarate-FA ( Vitamin Tablet) 1 Each Tablet, 1 TAB PO DAILY, TAB 08/14/16 Allergies Allergies: Coded Allergies: No Known Allergy (Verified , 12/13/16) PMhx/Soc History of Surgery: No Anesthesia Reaction: No Hx Neurological Disorder: No Hx Respiratory Disorders: No Hx Cardiac Disorders: No Hx Psychiatric Problems: No Hx Miscellaneous Medical Probl: No Hx Alcohol Use: Yes Hx Substance Use: No Hx Tobacco Use: Yes Smoking Status: Current every day smoker Physical Exam Vitals Vital Signs Date Time Temp Pulse Resp B/P Pulse Ox O2 Delivery O2 Flow Rate FiO2 01/16/17 17:59 98.1 72 20 118/59 99 Physical Exam Const: Nontoxic, well-appearing female in no acute distress. Head: Atraumatic Eyes: Normal Conjunctiva ENT: Normal External Ears, Nose and Mouth. Neck: Full range of motion..~ No meningismus. Resp: Clear to auscultation bilaterally Cardio: Regular rate and rhythm, no murmurs Abd: Soft, non tender, non distended. Normal bowel sounds. No suprapubic tenderness palpation. Skin: No petechiae or rashes Back: No midline or flank tenderness. No CVA tenderness. Ext: No cyanosis, or edema Neur: Awake and alert Psych: Normal Mood and Affect Results 24 hrs Laboratory Tests Test 01/16/17 18:45 Bedside Urine pH (LAB) 5.5 Bedside Urine Protein (LAB) 2+ Bedside Urine Glucose (UA) Negative Bedside Urine Ketones (LAB) Negative Bedside Urine Blood 2+ Bedside Urine Nitrite (LAB) Negative Bedside Urine Leukocyte Esterase (L 2+ Procedures/MDM 36-year-old female presents to the emergency department with complaints of dysuria. Physical examination is benign. Urine dip is concerning for urinary tract infection. The patient is stable for an outpatient management treatment plan with a prescription for Keflex. Strict ER return precautions were discussed. I low suspicion for ascending pyelonephritis or other complications. Close follow-up with a primary care physician was advised. Departure Diagnosis: Primary Impression: Urinary tract infection Condition: Fair Patient Instructions: Understanding Urinary Tract Infections (UTIs) [facility] Usted se duncan hecho un examen mdico de control que le indica que no est en pedro condicin que requiera tratamiento urgente en el Departamento de Emergencia. Un estudio ms profundo y el tratamiento de ortiz condicin pueden esperar sin ningn riesgo hasta que usted sea atendida/o en el consultorio de ortiz mdico o pedro cl cisco. Es responsabilidad suya arreglar pedro camille para el seguimiento del sonya. MANEJO DE CONDICIONES NO URGENTES EN EL FUTURO 1) Si usted tiene un mdico de atencin primaria: Usted debera llamar a ortiz mdico de atencin primaria antes de venir al departamento de emergencia. Despus de las horas de consultorio, ortiz doctor o ortiz asociado/a est disponible por telfono. El mdico o enfermero de michelle en el servicio telefnico puede asesorarle por sagar medio para atender el problema, o sonya contrario se puede programar pedro camille. 2) Si usted no tiene un mdico de atencin primaria: Llame al mdico o clnica de referencia que aparece abajo chayito las horas de consultorio para hacer pedro camille para que le vean. CLINICAS: [facility] [phone] [facility] [phone] [facility] [phone] [facility] [phone] [facility] [phone] [facility]. [phone] [address] Additional Instructions: No mas mejor en 2-3 mohan, regresar. Mas peor en 24 horas, regresear rapidamente. Ir a doctor primario in 5-7 mohan. Usar instrucciones cuando chidi medicamento. JESSIKA LAINEZ PA-C Jan 16, 2017 20:42
== END 2017-01-16 19:50 | disposition home or self-care (01) ==
LOC: FTE 17:56
DX: N39.0 Urinary tract infection, site not specified (principal); F17.210 Nicotine dependence, cigarettes, uncomplicated
CPT/HCPCS: 81003; Z7502; 99283

== ENCOUNTER 2017-06-10 20:37 | Emergency (ER) | payer MEDICAID ==
[~2017-06-10] VITALS: Ht 162.6 cm; Wt 60.5 kg
[~2017-06-10 20:37] MED LIST changes: +CEPH-443 PO
[2017-06-10 20:50] VITALS: Ht 162.6 cm; Wt 60.5 kg
[2017-06-10] MEDS ORDERED: CEPH-443 PO (21:37)
[2017-06-10] MEDS ORDERED: IBUP-1542 PO (21:37)
--- NOTE | 2017-06-10 21:39 | ERD ---
ER Documentation Chief Complaint Chief Complaint right breast pain x 4 weeks- her baby for 4 months HPI 36-year-old female presents here to emergency department for complaints of right breast pain for 4 days. Patient's complaint of pain throbbing pain, 6/10 scale, as was upon touching the area. Patient denies any nipple discharge. Patient is complaining of some redness of affected area. Patient breast-feeds her baby for 4 months now. Breast-feeding make it worse. Did not take any medications to help with symptoms. Patient denies any deformity. Patient denies any fever chills ROS All systems reviewed and are negative except as per history of present illness. Medications Home Meds Active Scripts Ibuprofen* (Motrin*) 600 Mg Tab, 600 MG PO Q6H Y for PAIN AND OR ELEVATED TEMP, #30 TAB Prov:GIANA ADAMSON NP 06/10/17 Cephalexin* (Keflex*) 500 Mg Capsule, 500 MG PO QID for 10 Days, CAP Prov:GIANA ADAMSON NP 06/10/17 Cephalexin* (Keflex*) 500 Mg Capsule, 500 MG PO TID for 7 Days, #21 CAP Prov:JESSIKA LAINEZ PA-C 01/16/17 Reported Medications Vit-Iron Fumarate-FA ( Vitamin Tablet) 1 Each Tablet, 1 TAB PO DAILY, TAB 08/14/16 Allergies Allergies: Coded Allergies: No Known Allergy (Verified , 12/13/16) PMhx/Soc History of Surgery: No Anesthesia Reaction: No Hx Neurological Disorder: No Hx Respiratory Disorders: No Hx Cardiac Disorders: No Hx Psychiatric Problems: No Hx Miscellaneous Medical Probl: No Hx Alcohol Use: Yes Hx Substance Use: No Hx Tobacco Use: Yes Smoking Status: Current every day smoker FmHx Family History: No coronary disease, No diabetes, No other Physical Exam Vitals Vital Signs Date Time Temp Pulse Resp B/P Pulse Ox O2 Delivery O2 Flow Rate FiO2 06/10/17 20:50 98.6 65 20 121/99 100 Physical Exam GENERAL: The patient is well developed and appropriate for usual state of health, in no apparent distress. CHEST: Clear to auscultation bilaterally. There are no rales, wheezes or rhonchi. Noted redness on the right breast area surrounding the nipple, mild tenderness on palpation, noted nipples on the right breast to be cracked. No nipple discharge. Left breast area is normal. HEART: Regular rate and rhythm. No murmurs, clicks, rubs or gallops. No S3 or S4. ABDOMEN: Soft, nontender and nondistended. Good bowel sounds. No rebound or guarding. No gross peritonitis. No gross organomegaly or masses. No Conway sign or McBurney point tenderness. BACK: No midline or flank tenderness. EXTREMITIES: Equal pulses bilaterally. There is no peripheral clubbing, cyanosis or edema. No focal swelling or erythema. Full range of motion. Grossly neurovascularly intact. NEURO: Alert and oriented. Cranial nerves 2-12 intact. Motor strength in all 4 extremities with 5/5 strength. Sensation grossly intact. Normal speech and gait. SKIN: There is no apparent rash or petechia. The skin is warm and dry. HEMATOLOGIC AND LYMPHATIC: There is no evidence of excessive bruising or lymphedema. No gross cervical, axillary, or inguinal lymphadenopathy. Procedures/MDM Medical decision making: Patient symptoms was likely is consistent with mastitis. No nipple discharge, no symptoms of any abscess. No symptoms of any deformity, no lumps noted. Patient does not have any symptoms of sepsis at this time, patient appears well and is hemodynamically stable. Prescription was given for Keflex, ibuprofen, is advised to follow-up with primary care doctor in 2-3 days for reevaluation of symptoms. Patient was advised to avoid breast-feeding affected area, continue to pump and down, apply cold compress on affected area. Patient was advised to return to emergency department for any worsening symptoms. Disposition: Home. Stable Departure Diagnosis: Primary Impression: Mastitis Condition: Stable Patient Instructions: GIANA Valentin NP Jun 10, 2017 21:39
== END 2017-06-10 21:46 | disposition home or self-care (01) ==
LOC: FTE 20:37
DX: N61.0 Mastitis without abscess (principal); F17.210 Nicotine dependence, cigarettes, uncomplicated
CPT/HCPCS: 99283